=== PATIENT | male | born 1970 | race Caucasian/White ===

== ENCOUNTER 2017-08-15 23:33 | Emergency (ER) | payer BC ==
[~2017-08-15] VITALS: Ht 185.4 cm; Wt 121.7 kg
[~2017-08-15 23:33] MED LIST: ACTOS15 MG PO; ASPIR-LOW81 MG PO; LOSARTAN POTASS25 MG PO; METFORMIN HCL1000 MG PO; ONGLYZA5 MG PO; PIOGLITAZONE HC30 MG PO; PREDNISONE10 MG PO
[2017-08-16] MEDS ORDERED: PREDNISONE20 MG PO (00:32)
[2017-08-16] MEDS ORDERED: FLEXERIL5 MG PO (00:32)
[2017-08-16] MEDS ORDERED: PERCOCET 5/31 TABLET PO (00:32)
[2017-08-16 00:44] VITALS: BP 154/76
== END 2017-08-16 00:44 | disposition home or self-care (01) ==
LOC: EME 23:33
DX: M54.12 Radiculopathy, cervical region (principal); Z88.0 Allergy status to penicillin
CPT/HCPCS: 99281; 99283; J7512